=== PATIENT | female | born 1950 | race Two or more races ===

== ENCOUNTER 2018-02-11 12:14 | Emergency (ER) | payer OTHER ==
--- NOTE | 2018-02-11 12:50 | ER Document Report ---
ED Medical Screen (RME) - General Chief Complaint: Neck Swelling Stated Complaint: RIGHT SIDE NECK SWELLING,HEADACHE Time Seen by Provider: 02/11/18 12:49 Notes: Patient has a history of breast cancer. She states she has noticed some tender swellings in her neck and skull which she believes may be swollen lymph nodes. TRAVEL OUTSIDE OF THE [place] IN LAST 30 DAYS: No - Related Data Allergies/Adverse Reactions: No Known Allergies Allergy (Verified 02/11/18 12:42) Past Medical History - Social History Frequency of alcohol use: None Drug Abuse: None Renal/ Medical History: Denies: Hx Peritoneal Dialysis Physical Exam - Vital signs Vitals: Temp Pulse Resp BP Pulse Ox 97.8 F 94 18 137/83 H 96 02/11/18 12:21 02/11/18 12:21 02/11/18 12:21 02/11/18 12:21 02/11/18 12:21 Course - Vital Signs Vital signs: Temp Pulse Resp BP Pulse Ox 97.8 F 94 18 137/83 H 96 02/11/18 12:21 02/11/18 12:21 02/11/18 12:21 02/11/18 12:21 02/11/18 12:21
[2018-02-11 13:30] LABS: ABSOLUTE EOSINOPHILS # (AUTO) 0.1 10^3/uL (0.0-0.6); ABSOLUTE LYMPHOCYTES (AUTO) 1.5 10^3/uL (0.5-4.7); ABSOLUTE MONOCYTES (AUTO) 0.7 10^3/uL (0.1-1.4); ABSOLUTE NEUT (AUTO) 3.5 10^3/uL (1.7-8.2); BASOPHILS % (AUTO) 0.7 % (0-2); EOSINOPHILS % (AUTO) 1.2 % (0-6); HEMATOCRIT 44.1 % (36.0-47.0); HEMOGLOBIN 14.5 g/dL (12.0-15.5); LYMPHOCYTES % (AUTO) 26.3 % (13-45); MEAN CORPUSCULAR HEMOGLOBIN 26.7 pg (27.0-33.4); MEAN CORPUSCULAR HGB CONC 32.7 g/dL (32.0-36.0); MEAN CORPUSCULAR VOLUME 82 fl (80-97); MONOCYTES % (AUTO) 11.7 % (3-13); PLATELET COUNT 164 10^3/uL (150-450); RED BLOOD COUNT 5.41 10^6/uL (3.72-5.28); RED CELL DISTRIBUTION WIDTH 14.3 % (11.5-14.0); SEGMENTED NEUTROPHILS % (AUTO) 60.1 % (42-78); TOTAL CELLS COUNTED % (AUTO) 100 %; WHITE BLOOD COUNT 5.7 10^3/uL (4.0-10.5)
[2018-02-11 13:43] LABS: ALANINE AMINOTRANSFERASE 37 U/L (9-52); ALBUMIN 4.4 g/dL (3.5-5.0); ALKALINE PHOSPHATASE 88 U/L (38-126); ANION GAP 11 (5-19); ASPARTATE AMINO TRANSFERASE 23 U/L (14-36); BILIRUBIN,DIRECT 0.1 mg/dL (0.0-0.4); BILIRUBIN,TOTAL 0.5 mg/dL (0.2-1.3); BLOOD UREA NITROGEN 22 mg/dL (7-20); CARBON DIOXIDE 31 mmol/L (22-30); CHLORIDE 100 mmol/L (98-107); GLUCOSE 121 mg/dL (75-110); POTASSIUM 4.3 mmol/L (3.6-5.0); SODIUM 141.5 mmol/L (137-145); TOTAL PROTEIN 7.3 g/dL (6.3-8.2)
--- NOTE | 2018-02-11 16:53 | RADIOLOGY REPORT (SQ) ---
EXAM DESCRIPTION: CT HEAD WITHOUT COMPLETED DATE/TIME: 02/11/2018 4:45 pm REASON FOR STUDY: Hx met breast ca, worsening right posterior headac COMPARISON: None. TECHNIQUE: Axial images acquired through the brain without intravenous contrast. Images reviewed wi th bone, brain and subdural windows. Images stored on PACS. All CT scanners at this facility use dose modulation, iterative reconstruction, and/or weight based d osing when appropriate to reduce radiation dose to as low as reasonably achievable (ALARA). [facility]: Dose Right [facility]: CareDose [facility]: Dose Right [facility]: Teradose 4D [facility]: Labs on the Go RADIATION DOSE: CT Rad equipment meets quality standard of care and radiation dose reduction techniq ues were employed. CTDIvol: 53.2 mGy. DLP: 911 mGy-cm. mGy. LIMITATIONS: None. FINDINGS: VENTRICLES: Normal size and contour. CEREBRUM: No masses. No hemorrhage. No midline shift. No evidence for acute infarction. Normal gra y/white matter differentiation. No areas of low density in the white matter. CEREBELLUM: No masses. No hemorrhage. No alteration of density. No evidence for acute infarction. EXTRAAXIAL SPACES: No fluid collections. No masses. ORBITS AND GLOBE: No intra- or extraconal masses. Normal contour of globe without masses. CALVARIUM: No fracture. PARANASAL SINUSES: No fluid or mucosal thickening. SOFT TISSUES: No mass or hematoma. OTHER: No other significant finding. IMPRESSION: NORMAL BRAIN CT WITHOUT CONTRAST. EVIDENCE OF ACUTE STROKE: NO. COMMENT: Quality ID # [id number]: Final reports with documentation of one or more dose reduction techniques (e.g., Automated exposure control, adjustment of the mA and/or kV according to patient size, use of iterative reconstruction technique) TECHNICAL DOCUMENTATION: JOB ID: [id number] [employer]- All Rights Reserved Reading location - IP/workstation name: [email or web address]
--- NOTE | 2018-02-11 17:01 | ER Document Report ---
ED General - General Chief Complaint: Neck Swelling Stated Complaint: RIGHT SIDE NECK SWELLING,HEADACHE Time Seen by Provider: 02/11/18 12:49 Notes: Patient is a 68-year-old female, past medical history stage IV breast cancer followed by [facility] in [place], presents with increased pain and swelling of her right neck and posterior right head. She is feeling enlarged lymph nodes that are not tender. She called her oncologist in [place] today and has a PET scan scheduled, but she will not be back to [place] for the next 2 weeks. She denies fevers, nausea, vomiting, blurry vision, rash, focal weakness, numbness, tingling or ear pain. TRAVEL OUTSIDE OF THE [place] IN LAST 30 DAYS: No - Related Data Allergies/Adverse Reactions: No Known Allergies Allergy (Verified 02/11/18 12:42) Past Medical History - General Information source: Patient - Social History Smoking Status: Former Smoker Frequency of alcohol use: None Drug Abuse: None Family History: Reviewed & Not Pertinent Patient has suicidal ideation: No Patient has homicidal ideation: No Renal/ Medical History: Denies: Hx Peritoneal Dialysis Review of Systems - Review of Systems Notes: REVIEW OF SYSTEMS: CONSTITUTIONAL: -fevers, -chills EENT: -eye pain, -difficulty swallowing, -nasal congestion CARDIOVASCULAR: -chest pain, -syncope. RESPIRATORY: -cough, -SOB GASTROINTESTINAL: -abdominal pain, -nausea, -vomiting, -diarrhea GENITOURINARY: -dysuria, -hematuria MUSCULOSKELETAL: -back pain, -neck pain SKIN: -rash or skin lesions. HEMATOLOGIC: -easy bruising or bleeding. LYMPHATIC: +swollen, enlarged glands. NEUROLOGICAL: -altered mental status or loss of consciousness, +headache, - neurologic symptoms PSYCHIATRIC: -anxiety, -depression. ALL OTHER SYSTEMS REVIEWED AND NEGATIVE. Physical Exam - Vital signs Vitals: Temp Pulse Resp BP Pulse Ox 97.8 F 94 18 137/83 H 96 02/11/18 12:21 02/11/18 12:21 02/11/18 12:21 02/11/18 12:21 02/11/18 12:21 - Notes Notes: PHYSICAL EXAMINATION: GENERAL: Well-appearing, well-nourished and in no acute distress. HEAD: Atraumatic, normocephalic. EYES: Pupils equal round and reactive to light, extraocular movements intact, sclera anicteric, conjunctiva are normal. ENT: nares patent, oropharynx clear without exudates. Moist mucous membranes. NECK: Normal range of motion, supple with multiple non-tender right cervical adenopathy, posterior auricular and occiptial lymphadenopathy. LUNGS: Breath sounds clear to auscultation bilaterally and equal. No wheezes rales or rhonchi. HEART: Regular rate and rhythm without murmurs ABDOMEN: Soft, nontender, normoactive bowel sounds. No guarding, no rebound. No masses appreciated. EXTREMITIES: Normal range of motion, no pitting or edema. No cyanosis. NEUROLOGICAL: Cranial nerves grossly intact. Normal speech, normal gait. Normal sensory and motor exams. PSYCH: Normal mood, normal affect. SKIN: Warm, Dry, normal turgor, no rashes or lesions noted. Course - Re-evaluation Re-evalutation: Patient appears well. She is no signs of infection for the lymphadenopathy. Suspect that she has worsening of her metastatic breast cancer, which is causing the lymphadenopathy. CT head done to the swelling and headache does not show any acute intracranial abnormalities. Provide her a copy of her blood work, CT scan and CT read to bring to her oncologist when she returns to [place]. - Vital Signs Vital signs: Temp Pulse Resp BP Pulse Ox 97.5 F 79 18 151/83 H 92 02/11/18 17:18 02/11/18 17:18 02/11/18 17:18 02/11/18 17:18 02/11/18 17:18 - Laboratory Result Diagrams: 02/11/18 12:58 02/11/18 12:58 Laboratory results interpreted by me: 02/11/18 02/11/18 12:58 12:58 RBC 5.41 H MCH 26.7 L RDW 14.3 H Carbon Dioxide 31 H BUN 22 H Glucose 121 H - Diagnostic Test Radiology reviewed: Image reviewed, Reports reviewed Radiology results interpreted by me: CT Head: NAD Discharge - Discharge Clinical Impression: Lymphadenopathy of head and neck Headache Qualifiers: Headache type: unspecified Headache chronicity pattern: unspecified pattern Intractability: not intractable Qualified Code(s): R51 - Headache Condition: Stable Disposition: HOME, SELF-CARE Additional Instructions: You must follow-up with your oncologist in [place] when you return for further evaluation of your enlarged lymph nodes. Lymphadenopathy You have enlargement of lymph glands, called lymphadenopathy. Lymph glands filter tissue fluids. They help to fight infection. Most of the time, enlarged lymph glands are not serious. Lymph glands may react to a viral or bacterial infection by becoming swollen and painful. When the infection goes away, the glands shrink. Sometimes a lymph gland will remain enlarged for a long time after an infection. Occasionally, a lymph gland may be overwhelmed by infection and form an abscess. If an enlarged lymph gland has signs that are suspicious for tumor, the doctor will recommend a biopsy. A suspicious gland usually is NOT painful, grows very slowly, and is rock-hard to touch. See the doctor or return if there is increasing swelling and redness, high fever, difficulty breathing, or any other change for the worse. Prescriptions: Hydrocodone/Acetaminophen [[place] 5-325 mg Tablet] 1 tab PO Q6H PRN #20 tablet PRN Reason: Forms: Elevated Blood Pressure
[2018-02-11] MEDS ORDERED: HYDROCODONE/ACETAMINOPHEN 5-325 MG TABLET PO ONE (17:12)
[2018-02-11 17:21] VITALS: BP 151/83
== END 2018-02-11 17:40 | disposition home or self-care (01) ==
LOC: ER 12:14
DX: R59.0 Localized enlarged lymph nodes (principal); R51 Headache; Z85.3 Personal history of malignant neoplasm of breast; Z87.891 Personal history of nicotine dependence
CPT/HCPCS: 36415; 70450; 80053; 85025; 99284